=== PATIENT | male | born 1945 | race Caucasian/White ===

== ENCOUNTER 2017-04-23 09:47 | Day surgery (SDC) | payer MEDICARE, BC ==
[2017-04-23] MEDS ORDERED: Lactated Ringers 1,000 ML IV SCH (10:00)
[2017-04-23] MEDS ORDERED: Sodium Chloride 0.9% 10 ML Syringe FLUSH PRN (10:00)
[2017-04-23] MEDS ORDERED: fentaNYL 100 MCG/2 ML SDV ONE ×2 (11:09→11:18)
[2017-04-23] MEDS ORDERED: Midazolam 1 MG/ML 2 ML SDV ONE ×2 (11:09→11:18)
[2017-04-23] MEDS ORDERED: Propofol 200 MG/20 ML SDV ONE ×3 (11:10→11:50)
--- NOTE | 2017-04-23 11:42 | PCM.OPNOTE ---
- General Post-Op/Procedure Note Date of Surgery/Procedure: 04/23/17 Operative Procedure(s): Colonoscopy to Hep flex Findings: Normal Pre Op Diagnosis: FH Colon Ca Post-Op Diagnosis: Same Anesthesia Technique: MAC Primary Surgeon: Brian Khan Anesthesia Provider: Rosy GOMES in mLs: 0 Complications: None Condition: Good
--- NOTE | 2017-04-23 15:41 | OR ---
Date of Procedure: 04/23/2017 PREOPERATIVE DIAGNOSIS: Family history of colon cancer. POSTOPERATIVE DIAGNOSIS: Normal colonoscopy to the hepatic flexure. PROCEDURE: Colonoscopy to the hepatic flexure. ANESTHESIA: IV sedation. PROCEDURE IN DETAIL: The patient was brought to the procedure room, where he was placed on his left side and IV sedation administered. Digital rectal exam was performed, which was normal. Colonoscope was inserted and advanced to the level of the hepatic flexure, at which time, significant looping occurred. Despite changing to the supine position and providing pressure on the abdomen, I was unable to get past the hepatic flexure. The prep up to that point was good and surfaces were well visualized. Upon withdrawing the scope, the transverse and descending colon were normal. At approximately 40 cm in the sigmoid colon was a submucosal bruising of approximately 2 cm diameter from scope pressure. Mucosa otherwise appeared normal. Rectum was normal and retroflexion was normal. Air was removed and the scope withdrawn. The patient tolerated the procedure well and returned to recovery in stable condition. I will recommend he undergo a barium enema to evaluate the right colon. KAITLIN BRUNSON MD /[id number]
== END 2017-04-23 13:39 | disposition home or self-care (01) ==
LOC: LL.SDS 09:47
PROVIDERS: ATTEND Surgery
DX: Z12.11 Encounter for screening for malignant neoplasm of colon (principal); I25.2 Old myocardial infarction; Z95.1 Presence of aortocoronary bypass graft; L57.0 Actinic keratosis; M19.90 Unspecified osteoarthritis, unspecified site; I25.10 Atherosclerotic heart disease of native coronary artery without angina pectoris; B00.1 Herpesviral vesicular dermatitis; H91.90 Unspecified hearing loss, unspecified ear; I10 Essential (primary) hypertension; L98.9 Disorder of the skin and subcutaneous tissue, unspecified; Z80.0 Family history of malignant neoplasm of digestive organs; Z79.82 Long term (current) use of aspirin; Z79.899 Other long term (current) drug therapy; Z90.49 Acquired absence of other specified parts of digestive tract; Z87.891 Personal history of nicotine dependence
CPT/HCPCS: 00812; 74018; G0105; J2250; J2704; J3010; J7120